=== PATIENT | female | born 1995 | race Caucasian/White ===

== ENCOUNTER 2020-06-16 13:59 | Outpatient (CLI) | payer MEDICAID, SELFPAY ==
--- NOTE | ~2020-06-16 | US_ITS ---
EXAMINATION: US OB <= 14 weeks fetus DATE: 06/16/2020 14:37 INDICATION: Spotting during first trimester . TECHNIQUE: Real-time pelvic transabdominal and transvaginal ultrasound was performed. COMPARISON: None. FINDINGS: The uterus measures 9.7 x 5.0 x 5.3 cm. There is an intrauterine gestational sac. There is a 1.1 x 0.4 x 0.5 cm hypoechoic area adjacent to the gestational sac. A yolk sac is identified. Feta l heart motion is identified measuring 115 beats per minute (bpm) by M-mode Doppler. The crown rump length measures 4 mm , which correlates with an estimated gestational age of 6 weeks and 0 day(s ) (+/-) 4 day(s). The right ovary is not visualized however no right adnexal abnormality is seen. The left ovary measur es 2.9 x 2.1 x 2.4 cm. There is normal vascular flow in the left ovary. There is no free fluid in the pelvis. IMPRESSION: 1. Live intrauterine with an estimated gestational age of 6 weeks and 0 day(s) (+/-) 4 day( s) and an estimated delivery date of 02/09/2021. 2. Small subchorionic hemorrhage. Reviewed, dictated and finalized at location A. 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 Live intrauterine with an estimated gestational age of 6 weeks and 0 day(s) (+/-) 4 day(s) and an estimated delivery date of 02/09/2021. 2. Small subchorionic hemorrhage.
== END 2020-06-16 14:00 | disposition home or self-care (01) ==
PROVIDERS: Visit Provider Obstetrics & Gynecology Gynecology
DX: O26.21 Pregnancy care for patient with recurrent pregnancy loss, first trimester (principal); O26.851 Spotting complicating pregnancy, first trimester; Z3A.00 Weeks of gestation of pregnancy not specified
CPT/HCPCS: 76801

== ENCOUNTER 2020-06-30 16:01 | Outpatient (CLI) | payer MEDICAID, SELFPAY ==
--- NOTE | ~2020-06-30 | US_ITS ---
EXAMINATION: US OB <= 14 weeks fetus EXAM DATE: 06/30/2020 16:29 INDICATION: Subchorionic hematoma. Follow-up. 1st trimester. TECHNIQUE: Pelvic obstetrical transabdominal sonogram was performed by a technologist. There are mu ltiple grayscale and Doppler images available for interpretation. Comparison is made to prior examina tion from 06/16/2020. FINDINGS: There is a live intrauterine gestation, with 1.9 cm crown-rump length corresponding to nubia mated gestational age 8 weeks 2 days, FOSTER 02/07/2021. heart rate was confirmed at 165 bpm. There is a yolk sac. No subchorionic hematoma was identified on this exam. IMPRESSION: Live intrauterine gestation, resolution of previously seen subchorionic hemorrhage. Reviewed, dictated and finalized at location A. IMPRESSION: Live intrauterine gestation, resolution of previously seen subchor ionic hemorrhage.
== END 2020-06-30 16:02 | disposition home or self-care (01) ==
PROVIDERS: Visit Provider Obstetrics & Gynecology Gynecology
DX: O36.8910 Maternal care for other specified fetal problems, first trimester, not applicable or unspecified (principal); Z3A.00 Weeks of gestation of pregnancy not specified
CPT/HCPCS: 76801

== ENCOUNTER 2020-09-15 16:18 | Outpatient (CLI) | payer OTHER, SELFPAY ==
--- NOTE | ~2020-09-15 | US_ITS ---
EXAMINATION: US OB /maternal detail DATE: 09/15/2020 17:03 INDICATION: survey TECHNIQUE: Multiple obstetric sonographic images performed. FINDINGS: Comparison to multiple prior studies sequentially, with oldest reviewed study dated . There is a single living fetus in vertex presentation. The placenta is posterior without placenta pr evia. Amniotic fluid volume is subjectively normal cardiac activity and movement is noted with a heart rate of 150 beats per minute. The following anatomy was identified as normal: 4 chamber heart 3 vessel cord cord insertion kidneys urinary bladder stomach spine diaphragm ventricles cisterna magna cerebellum The following biometric data were obtained: BPD: 47mm corresponds to gestational age 20 weeks 1 days. Head circumference: 166 mm corresponds to gestational age 19 weeks 2 days. Abdominal circumference: 138 mm corresponds to gestational age 19 weeks 2 days. Femur length: 30 mm corresponds to gestational age 19 weeks 1 days. Head circumference to abdominal circumference ratio: 1.2 (normal range for expected gestational age i s 1.08-1.26). Estimated weight: 281 grams +/- 42 grams using Hadlock method. IMPRESSION: 1: Single living intrauterine with an estimated gestational age of 19weeks 0days by initial ultrasound measurements, with an EDC of 02/09/2021 in vertex presentation. 2. Normal survey. Reviewed, dictated and finalized at location B. IMPRESSION: 1: Single living intrauterine with an estimated gestational age of 19 weeks 0days by initial ultrasound measurements, with an EDC of 02/09/2021 in ve rtex presentation. 2. Normal survey.
== END 2020-09-15 16:19 | disposition home or self-care (01) ==
LOC: ANHIMG 16:22
PROVIDERS: Visit Provider Obstetrics & Gynecology Gynecology
DX: Z36.9 Encounter for antenatal screening, unspecified (principal); Z3A.19 19 weeks gestation of pregnancy
CPT/HCPCS: 76805

== ENCOUNTER 2021-01-25 14:11 | Outpatient (CLI) | payer OTHER, SELFPAY ==
--- NOTE | ~2021-01-25 | US_ITS ---
EXAMINATION: US OB follow up DATE: 01/25/2021 15:06 INDICATION: Estimated size less than expected for estimated gestational age. TECHNIQUE: Real-time ultrasound of the pelvis was performed. The interpreting radiologist was not pre sent for the study. COMPARISON: None. FINDINGS: There is a single living fetus in vertex presentation. The placenta is posterior. heart rate i s 139 beats per minute (bpm). The amniotic fluid volume is subjectively normal. The following biometric data were obtained: BPD: 9.2 cm -> 37 weeks 1 days Head circumference: 32.6 cm -> 36 weeks 6 days Abdominal circumference: 31.2 cm -> 35 weeks 1 days Femur length: 7.1 cm -> 36 weeks 3 days These measurements are concordant. Head circumference to abdominal circumference ratio: 1.04 (normal range 0.92-1.07). Estimated weight: 2798 g (+/-) 420 g or 6 lbs. 3 oz. (+/-) 15 oz. IMPRESSION: 1. Single living fetus in vertex presentation with heart rate of 139 bpm. 2. Estimated weight is 16th percentile by Hadlock criteria when 02/09/2021 is used as the estima el date of delivery (FOSTER) based upon earliest ultrasound performed at this institution on 06/16/2020. Please correlate with clinical information or earlier ultrasounds for most accurate FOSTER. Reviewed, dictated and finalized at location A. IMPRESSION: 1. Single living fetus in vertex presentation with heart rate of 139 bpm. 2. Estimated weight is 16th percentile by Hadlock criteria when 02/09/2021 is used as the estimated date of delivery (FOSTER) based upon earliest ultrasound performed at this institution on 06/16/2020. Please correlate with clinical inf ormation or earlier ultrasounds for most accurate FOSTER.
== END 2021-01-25 14:12 | disposition home or self-care (01) ==
LOC: ANHIMG 14:23
PROVIDERS: PCP Nurse Practitioner; Visit Provider Nurse Practitioner
DX: O36.5933 Maternal care for other known or suspected poor fetal growth, third trimester, fetus 3 (principal); Z3A.36 36 weeks gestation of pregnancy
CPT/HCPCS: 76816

== ENCOUNTER 2021-02-03 04:55 | Inpatient (IN) | payer OTHER, SELFPAY ==
[2021-02-03] VITALS (82 sets, daily range): BP systolic 78–157; BP diastolic 44–93; PULSE 57–231; RESP 16; TEMP 36.8–37.2; O2SAT 95–100; BMI 30.1
--- NOTE | 2021-02-03 04:55 | LDADM ---
This patient, Grace Andersen, was admitted to Labor/Delivery/Recovery 104 on 02/03/21 at 04:55. Plans for labor, pain management and were discussed with patient. Patient/family oriented to hospital policies and general routines including ID bracelet, bed and alarms, visiting hours, pain management, procedures, bathroom and other care routines, personal items, smoking policy, room service/diet and guest tray routines, security routines, and visiting hours. Patient/Family are encouraged to report perceived risks to care and to ask questions if they do not understand what they are told or what they should do. See OBIX for further documentation.
[2021-02-03 05:44] LABS: Basophils Percent Auto 0.5 % (0.2-1.2); Eosinophils Absolute Auto 0.1 K/mm3 (0-0.3); Eosinophils Percent Auto 0.7 % (0-4.4); Hemoglobin 11.1 g/dL (12.0-15.0); Immature Granulocyte Absolute 0.04 K/mm3 (0.00-0.031); Immature Granulocyte Percent A 0.5 % (0-0.5); Lymphocytes Absolute Auto 1.65 K/mm3 (0.9-3.2); Lymphocytes Percent Auto 20.2 % (18.3-44.2); Mean Corpuscular HGB Conc 31.7 g/dl (32-36); Mean Corpuscular Hemoglobin 29.1 pg (26-34); Mean Corpuscular Volume 91.6 fl (80-100); Mean Platelet Volume 10.6 fl (7.4-10.4); Monocytes Absolute Auto 0.6 K/mm3 (0.1-0.6); Monocytes Percent Auto 6.8 % (2.6-8.5); Neutrophils Absolute Auto 5.8 K/mm3 (1.3-6.7); Neutrophils Percent Auto 71.3 % (45.5-73.1); Platelet Count Result 193 k/mm3 (150-375); Red Blood Count 3.82 M/mm3 (4.2-5.4); Red Cell Distribution Width 14.4 % (11.5-14.5); White Blood Count 8.2 K/mm3 (4.5-10.0)
[2021-02-03] MEDS: OXYTOCIN 30 UNITS/NS 500 ML 30 UNITS/500 ML BAG IV CONT (05:55)
[2021-02-03] MEDS: LACTATED RINGERS 1,000 ML 125 ML IV CONT ×2 (05:55→12:15)
--- NOTE | 2021-02-03 06:26 | WPDANESEPP ---
Anes - Eval Pre Procedure Procedure: labor epidural Date/Time: 02/03/21 06:26 Surgeon: evelio Preop Diagnosis: pain during labor Pre Op Diagnosis: IOL Patient Data Age: 25 Gender: F Height: 1.7 m Weight: 87.3 kg Last Vital Signs Pulse 82 02/03/21 05:36 BP 117/77 02/03/21 05:36 Allergies Allergy/AdvReac Type Severity Reaction Status Date / Time amoxicillin Allergy Mild Hives Verified 01/17/21 12:31 Home Medications Medication Instructions Recorded Confirmed Type prenat.vits,nadege,isr-zema-huxdt 1 tablet PO DAILY 01/17/21 02/03/21 History [ #2] valacyclovir [Valtrex] 500 mg PO DAILY 01/17/21 02/03/21 History Laboratory Tests 02/03/21 02/03/21 02/03/21 05:26 05:26 05:26 WBC 8.2 K/mm3 K/mm3 (4.5-10.0) RBC 3.82 M/mm3 L M/mm3 (4.2-5.4) Hgb 11.1 g/dL L g/dL (12.0-15.0) Hct 35.0 % L % (37.0-47.0) MCV 91.6 fl fl (80-100) MCH 29.1 pg pg (26-34) MCHC 31.7 g/dl L g/dl (32-36) RDW 14.4 % % (11.5-14.5) Plt Count 193 k/mm3 k/mm3 (150-375) MPV 10.6 fl H fl (7.4-10.4) Immature Gran % (Auto) 0.5 % % (0-0.5) Neut % (Auto) 71.3 % % (45.5-73.1) Lymph % (Auto) 20.2 % % (18.3-44.2) [place] % (Auto) 6.8 % % (2.6-8.5) Eos % (Auto) 0.7 % % (0-4.4) Baso % (Auto) 0.5 % % (0.2-1.2) Lymph # (Auto) 1.65 K/mm3 K/mm3 (0.9-3.2) [place] # (Auto) 0.6 K/mm3 K/mm3 (0.1-0.6) Eos # (Auto) 0.1 K/mm3 K/mm3 (0-0.3) Baso # (Auto) 0.0 K/mm3 K/mm3 (0.0-0.1) Abs Immat Gran (auto) 0.04 K/mm3 H K/mm3 (0.00-0.031) Absolute Neuts (auto) 5.8 K/mm3 K/mm3 (1.3-6.7) Absolute Nucleated RBC 0.0 K/mm3 K/mm3 (0.0-0.012) Nucleated RBC % 0.0 % % (0.0-0.2) RPR Pending HIV 1&2 Ab/P24 Ag 4thGn Pending Patient hx anesthesia problems: none Family hx anesthesia problems: none Results Review: All pre-operative results and documents have been reviewed as part of the pre-operative evaluation. [facility] Family History Family History Other No pertinent family history Social History Social History Smoking status: Former smoker Substance use: never Spiritual care concerns: No Exam Day of Procedure 02/03/21 06:26
[2021-02-03 06:42] LABS: HIV 1/2 Ab P24 Ag Result Negative (Negative)
[2021-02-03 06:58] LABS: Rapid Plasma Reagin Non-Reactive (NonReactive)
--- NOTE | 2021-02-03 07:53 | WPDOBADMIT ---
Obstetrics - Admit Note Admission Note: record reviewed. No pertinent additions to the history and/or any subsequent changes in the physical findings that are not consistent with the expected course of the were found. Additions to the history and/or subsequent changes in the physical findings follow. None.Here for MIL at 39 wks. /-3 AROM with clear fluid. FHTs reactive. Continue Pitocin
--- NOTE | 2021-02-03 14:45 | PM.OBPRVD ---
OB - Delivery Note Procedure Delivery date: 02/03/21 Procedure: events: Labor Induction Intrapartal events: None Induction method: AROM and per pitocin protocol Delivery monitor: external FHT and external uterine Route of delivery: Laceration Description: None Specimen: No Quantitative Blood Loss (ml): 50 Anesthesia type: Epidural Disposition: floor Baby Date of : 02/03/21 Weeks of gestation at delivery: 39 gender: Female presentation: vertex position: Right Occiput Anterior Placenta delivery description: Spontaneous cord vessel description: 3 Vessels score one minute: 9 score five minutes: 9
--- NOTE | 2021-02-03 14:46 | PM.OBDSVD ---
DS: Admitting Diagnosis Discharge Date 02/04/21 Admitting Diagnosis MIL @39 wks DS: Discharge Diagnosis Discharge Diagnosis (1) (normal spontaneous vaginal delivery): Code(s): O80 - Encounter for full-term uncomplicated delivery Status: Acute OB - DS: Summary OB Procedures : Ultrasound OB Procedures Intrapartum: Spontaneous Vag Delivery OB Procedures: : None Peripartum Data Infant Delivery Method: Natural Vaginal Laceration Description: None complications: none Status at Discharge Functional status at discharge: independent ambulation Overall status at discharge: patient is progressing back to baseline Time Spent with Patient Time attestation: Total time spent providing and/or coordinating discharge services: DS: Data Data Completed and Pending Labs on day of discharge: Labs from last 24 hours 02/03/21 02/03/21 02/03/21 05:26 05:26 05:26 WBC RBC Hgb Hct MCV MCH MCHC RDW Plt Count MPV Immature Gran % (Auto) Neut % (Auto) Lymph % (Auto) [place] % (Auto) Eos % (Auto) Baso % (Auto) Lymph # (Auto) [place] # (Auto) Eos # (Auto) Baso # (Auto) Abs Immat Gran (auto) Absolute Neuts (auto) Absolute Nucleated RBC Nucleated RBC % RPR Non-reactive HIV 1&2 Ab/P24 Ag 4thGn Negative Blood Type B Positive Antibody Screen Negative 02/03/21 05:26 WBC 8.2 RBC 3.82 L Hgb 11.1 L Hct 35.0 L MCV 91.6 MCH 29.1 MCHC 31.7 L RDW 14.4 Plt Count 193 MPV 10.6 H Immature Gran % (Auto) 0.5 Neut % (Auto) 71.3 Lymph % (Auto) 20.2 [place] % (Auto) 6.8 Eos % (Auto) 0.7 Baso % (Auto) 0.5 Lymph # (Auto) 1.65 [place] # (Auto) 0.6 Eos # (Auto) 0.1 Baso # (Auto) 0.0 Abs Immat Gran (auto) 0.04 H Absolute Neuts (auto) 5.8 Absolute Nucleated RBC 0.0 Nucleated RBC % 0.0 RPR HIV 1&2 Ab/P24 Ag 4thGn Blood Type Antibody Screen Discharge Plan Discharge Attending physician on discharge: Mel Abraham Discharging Clinician: Reddy,Rock L. Anticipated Discharge Date/Time: 02/04/21 14:47 Patient Disposition: Home, Self-Care Activity: may shower and pelvic rest Diet: regular Discharge Instructions: Education: Mom and Baby Guide Given to: Mother Follow-Up: Call your delivering provider's office for an appointment to be seen in: 6 Weeks Mom and baby should come to the [facility] for the follow-up appointment. Appointment Date/Time: February 07, 2021 at 11:00 am What to expect at your follow-up visit: Physical Assessment Call [phone] if you are unable to keep your appointment time. BREAST CARE: * Wear a snug supportive bra. * For engorgement discomfort: Breast Feeding: * Apply warm moist washcloths * Express milk as needed to relieve engorgement * Wear loose clothing * For sore nipples: * Identify correct latch-on * Apply warm moist washcloths before and after nursing * Air dry nipples after nursing * May apply Lansinoh cream to nipples PERINEAL CARE: * Until bleeding stops, use your joe bottle after urinating * Change your pad frequently throughout the day * You may take sitz baths several times a day (fill your bathtub with warm water and soak for 20 minutes.) Do NOT bathe in the water * No tub baths until seen by your physician - You may shower ACTIVITY: * Rest as much as possible. * Do not exercise or lift anything heavier than your baby (such as laundry or other children.) * Avoid stairs or driving as much as possible. * Do not put anything into the vagina. No douching, tampons, or sexual activity until seen by physician. NOTIFY PHYSICIAN IF YOU HAVE ANY QUESTIONS OR IF ANY OF THE FOLLOWING SYMPTOMS OCCUR: * If your perineum becomes red, swollen, or more painful than what you have experienced in the hospital. * If your vaginal bleeding becomes foul sme
[2021-02-03] MEDS: OXYTOCIN 30 UNITS/NS 500 ML 30 UNITS/500 ML BAG 125 UNITS IV CONT (15:10)
--- NOTE | 2021-02-03 17:22 | OBPPTRN ---
Patient transferred to post room # 290 via wheelchair accompanied by fob and . Support person present. Oriented to unit, room, information board, rooming in, admission packet and security measures. Patient verbalizes understanding. PT sole recipient of such instructions and no barriers to learning identified. PT received instructions and care per one to one discussion, mom baby care guide and demonstration this shift.
[2021-02-04 00:10] VITALS: BP 118/66; PULSE 68; RESP 16; TEMP 36.9; O2SAT 100
[2021-02-04] MEDS: IBUPROFEN 600 MG TABLET PO (01:15)
[2021-02-04 03:30] VITALS: BP 113/52; PULSE 74; RESP 16; TEMP 36.9; O2SAT 100
[2021-02-04 06:25] LABS: Hematocrit 32.4 % (37.0-47.0); Hemoglobin 10.2 g/dL (12.0-15.0)
[2021-02-04 08:20] VITALS: BP 113/68; PULSE 78; RESP 16; TEMP 37.2; O2SAT 100
--- NOTE | 2021-02-04 08:25 | PC.NURSE ---
Mother called out for assist with feeding, reporting is sleepy and she has sore nipples. Mother reports this to be 2nd child to breastfeed. Infant is able to freely thrust tongue past gum ridge and flange both lips. Skin is intact on both nipples, redness noted, no bruising noted. Reviewed feeding cues, frequencies, duration of feedings, feeding elimination flow sheet, and signs of adequate intake. Demonstrated stimulation techniques to wake for feeding. Assisted with to breast. Reviewed positioning/alignment in cross cradle, holding breast in ?U? hold and guided asymmetrical latch on. Reviewed rational for each. Infant sleepy and made eager attempts to latch with no suckling. Small amount of glucose water to gloved finger and nipple. Infant was able to latch correctly within a few attempts. nursed eagerly with steady draws and occasional swallowing noted, some pausing noted. Reviewed signs of a correct latch, effective nursing and suck swallow ratio. Suggested mother stimulate while feeding to increase stimulate, increase intake and to assist with maintaining deep latch. Infant would slip to shallow latch causing tenderness. Demonstrated how to adjust latch more deeply while feeding if needed. Mother reports she can feel the difference in latch with no tenderness. Nipple care reviewed of lanolin after feedings, warm compresses as needed, gel pads provided and reviewed care and cleaning. Instructed mother to call out for RN assistance if she is unable to latch for feeding or she has discomfort with nursing. Instructed feeding should be initiated three hours from start of last feeding or if feeding cues are noted before. Mother voiced understanding of information shared. Mother plans on discharge later this day. Mother is feeding as required and waking infant to feed if needed. is currently meeting outcomes for weight, output, jaundice and feeding frequencies. Mother states she feels confident to continue effective at home. Stressed the importance of keeping awake while feeding and keeping accurate record of output. Reviewed transition to breast milk, signs of adequate intake, and engorgement/relief. Instructed to call ICP if intake/output less than required. Reviewed regular medications mother is taking. Information provided per Anai. Reviewed community resources on the [employer] website and in the Mom/Baby guide. Information on outpatient services provided. Mother has no further questions at this time.
[2021-02-04] MEDS: MULTIVIT/MIN/PREN/FOL AC/IRON TABLET 1 TAB PO (09:38)
--- NOTE | 2021-02-04 11:55 | PM.OBPNVD ---
OB - PN: Subj Subjective Date/time seen: 02/04/21 11:55 doing well no complaints OB - PN: Obj Data Labs CBC & Chem 7: 02/04/21 03:35 Labs: Laboratory Results - last 24 hr 02/04/21 03:35 Hgb 10.2 L Hct 32.4 L OB - PN A/P Assessment and Plan (1) (normal spontaneous vaginal delivery): Code(s): O80 - Encounter for full-term uncomplicated delivery Status: Acute Assessment and Plan: d/c home Time Spent With Patient Time: Total time spent is greater than 50% in coordination of care (as documented) at patient's floor/unit and/or counseling patient: Exam Narrative: ff below umbilicus
[2021-02-04 13:06] VITALS: BP 106/56; PULSE 79; RESP 18; TEMP 37.2; O2SAT 99
--- NOTE | 2021-02-04 13:08 | WPDANLDPN2 ---
Anes-Prog Note L&D Date/Time: 02/04/21 13:08 Comfortable throughout: labor and delivery Neuraxial method: epidural Epidural/Spinal procedure site: clean & non-tender Neuro status: Neuro function grossly intact. Cardiovascular status: normal Respiratory status: normal Airway patency: baseline Mental status: baseline Post-Op hydration status: normal Vital Signs: Last Vital Signs Temp 37.2 C 02/04/21 13:06 Pulse 79 02/04/21 13:06 Resp 18 02/04/21 13:06 BP 106/56 L 02/04/21 13:06 Pulse Ox 99 02/04/21 13:06 Pain score (VAS): 3 I/O: Intake & Output 02/03/21 02/04/21 02/04/21 23:59 07:59 15:59 Output Total 50 Balance -50 Post-procedural complaints: none Patient feedback: Patient satisfied with anesthetic care.
[2021-02-07 11:17] VITALS: BP 121/65; PULSE 78; RESP 16; TEMP 37.2; O2SAT 100
== END 2021-02-04 16:15 | disposition home or self-care (01) | DRG 560 ==
LOC: ANHLDR 02-07 11:30 → ANHOB2 02-07 11:30
PROVIDERS: Admitting Provider Obstetrics & Gynecology Gynecology; PCP Nurse Practitioner; Visit Provider Obstetrics & Gynecology
DX: O80 Encounter for full-term uncomplicated delivery (principal); Z3A.39 39 weeks gestation of pregnancy; Z37.0 Single live birth
CPT/HCPCS: 36415; 85014; 85018; 85025; 86592; 86703; 86850; 86900; 86901; A9270; G0432; J2590; J2795; J7120

== ENCOUNTER 2022-02-19 09:40 | Emergency (ER) | payer OTHER, SELFPAY ==
[2022-02-19 09:52] VITALS: BP 113/62; PULSE 78; RESP 16; TEMP 36.3; O2SAT 100
--- NOTE | 2022-02-19 10:49 | ED.URI ---
HPI - URI/Sore Throat General Chief Complaint: Upper Respiratory Infection Stated Complaint: Headache,Ears,Sore Throat Time Seen by Provider: 02/19/22 10:49 Source: patient Mode of arrival: ambulatory Limitations: no limitations History of Present Illness HPI Narrative: 26-year-old female presents with complaint of runny nose, postnasal drainage, sore throat, nasal congestion, cough for 5 days. Reports that symptoms started after 80 degree weather, Sleepy with windows open at night. She is not taking any allergy medications or any other wxwp-wya-zowqkkc medications to treat her symptoms. she denies chest pain and shortness of breath. 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 Afebrile. All systems reviewed and negative except as noted above. Related Data Allergies Allergy/AdvReac Type Severity Reaction Status Date / Time amoxicillin Allergy Mild Hives Verified 02/19/22 10:07 Review of Systems Review of Systems: CONSTITUTIONAL: Denies fever, chills, or sweats. EYES: Denies visual changes, redness, or discharge. ENT: Reports rhinorrhea, congestion, sore throat, or otalgia. CARDIOVASCULAR: Denies chest pain, palpitations, or edema. RESPIRATORY: reports cough. Denies dyspnea. GASTROINTESTINAL: Denies abdominal pain, nausea, vomiting, or diarrhea. GENITOURINARY: Denies dysuria or hematuria. SKIN: Denies rash or itching. MUSCULOSKELETAL: Denies back pain, joint pain, or myalgia. NEUROLOGIC: Denies headache, numbness, or weakness. PSYCHIATRIC: Denies anxiety or depression. All other systems reviewed are negative, except as documented in HPI. [facility] Family History Family History Other No pertinent family history Social History Social History Smoking status: Former smoker Substance use: never Spiritual care concerns: No Comments At time of signature, agree with nursing past medical, surgical, social and family history. There is no relevant family history pertinent to the presenting complaint. Exam Narrative: GENERAL: This is a well-nourished, well-developed patient, in no apparent distress. HEAD: normocephalic, atraumatic. EYES: PERRL. Sclera clear/white. Vision is grossly intact. EARS: External ears normal, auditory canals clear and without drainage, mild clear fluid to bilateral TMs without erythema or perforation. NOSE: External nose normal with Mild nasal congestion. No sinus tenderness on exam. THROAT: Mucous membranes moist, No erythema to posterior pharynx but clear postnasal drainage noted. NECK: Neck supple, non-tender without lymphadenopathy, masses or thyromegaly. CARDIOVASCULAR: Regular rate and rhythm without murmurs, gallops, or rubs. RESPIRATORY: Clear to auscultation. Breath sounds equal bilaterally. No wheezes, rales, or rhonchi. SKIN: warm, Dry, intact with no suspicious lesions or rash, good texture and turgor. NEURO: awake, alert, and oriented to person, place and time. There were no obvious focal neurologic abnormalities. EXTREMITIES: No joint tenderness, effusion, or edema noted. Course Course Level of Care: Express Care Visit Vital Signs Vital signs: Vital Signs Temperature 36.3 C L 02/19/22 09:52 Pulse Rate 78 02/19/22 09:52 Respiratory Rate 16 02/19/22 09:52 Blood Pressure 113/62 02/19/22 09:52 Pulse Oximetry 100 02/19/22 09:52 Oxygen Delivery Room Air 02/19/22 09:52 Temperature 36.3 C L 02/19/22 09:52 Pulse Rate 78 02/19/22 09:52 Respiratory Rate 16 02/19/22 09:52 Blood Pressure 113/62 02/19/22 09:52 Pulse Oximetry 100 02/19/22 09:52 Oxygen Delivery Room Air 02/19/22 09:52 reviewed MDM - URI/Sore Throat MDM Narrative Medical decision making narrative: negative influenza and strep test. Will treat for rhinosinusitis Differential Diagnosis Differential diagnosis: Likely upper respiratory infection, otitis media, sinusitis, viral infection and influenza Lab Data Labs: Inf
== END 2022-02-19 11:06 | disposition home or self-care (01) ==
PROVIDERS: Emergency Provider Nurse Practitioner Family; PCP Nurse Practitioner
DX: J01.90 Acute sinusitis, unspecified (principal); Z87.891 Personal history of nicotine dependence
CPT/HCPCS: 87081; 87804; 87880; 99213; G0463

== ENCOUNTER 2023-03-28 17:46 | Emergency (ER) | payer OTHER, SELFPAY ==
[2023-03-28 17:58] VITALS: BP 104/57; PULSE 83; RESP 16; TEMP 37.3; O2SAT 99
--- NOTE | 2023-03-28 18:07 | ED.URI ---
HPI - URI/Sore Throat General Chief Complaint: Upper Respiratory Infection Stated Complaint: sore throat Time Seen by Provider: 03/28/23 17:51 Source: patient Mode of arrival: ambulatory Limitations: no limitations History of Present Illness HPI Narrative: Grace is a 27-year-old female patient presenting to the clinic today with complaints of a sore throat, headache, nasal congestion x3 days. She reports no known fever or chills. Reports that her son tested positive for influenza. MD elicited complaint: sore throat and nasal congestion Related Data Allergies Allergy/AdvReac Type Severity Reaction Status Date / Time amoxicillin Allergy Mild Hives Verified 03/28/23 17:55 Review of Systems Review of Systems: Pertinent positives per HPI. Patient denies any fever, chills, rash, headache, visual changes, dizziness, cough, shortness of breath, chest pain, palpitations, nausea, vomiting, diarrhea, constipation, abdominal pain, or any urinary issues. [facility] Family History Family History Other No pertinent family history Social History Social History Smoking status: Former smoker Substance use: never Spiritual care concerns: No Comments At the time of my signature, I reviewed and agree with the nursing past medical, surgical, social, and family history. There is no relevant family history pertinent to the patient complaint. Exam Narrative: General: Well-developed, well nourished, in no apparent distress Head: Normocephalic, atraumatic Eyes: Pupils equally round and reactive to light bilaterally, EOM intact, sclera and conjunctive clear, no discharge, lids normal Ears: TMs intact and clear, ear canals clear, no drainage, grossly hearing normal. Nose: Nares patent, clear nasal discharge, no inflammation, no sinus tenderness. Mouth: Oral pharynx red with bilateral tonsillar enlargement without lesions or masses, good dentition, MMM. Neck: Supple, trachea midline, enlargement of anterior cervical nodes, no thyroid masses or goiter palpable. Cardio: Regular rate and rhythm, s1 and s2 normal, no murmur appreciated. Resp: Clear to auscultation bilaterally, no rhonchi, rales, wheezing or rubs Course Course Emergency Course: Portions of this record may have been created with voice recognition software. Level of Care: Express Care Visit Vital Signs Vital signs: Vital Signs Temperature 37.3 C 03/28/23 17:58 Pulse Rate 83 03/28/23 17:58 Respiratory Rate 16 03/28/23 17:58 Blood Pressure 104/57 L 03/28/23 17:58 Pulse Oximetry 99 03/28/23 17:58 Oxygen Delivery Room Air 03/28/23 17:58 Temperature 37.3 C 03/28/23 17:58 Pulse Rate 83 03/28/23 17:58 Respiratory Rate 16 03/28/23 17:58 Blood Pressure 104/57 L 03/28/23 17:58 Pulse Oximetry 99 03/28/23 17:58 Oxygen Delivery Room Air 03/28/23 17:58 Vital signs reviewed MDM - URI/Sore Throat MDM Narrative Medical decision making narrative: At the time of visit patient is resting comfortably on the exam table. Patient appears to be nontoxic. Influenza testing was negative. Strep test was positive. Prescription for azithromycin was sent to the pharmacy. Supportive measures were discussed with the patient and they voiced understanding discharge instructions and agrees to treatment plan. Return precautions reviewed Differential Diagnosis Differential diagnosis: Likely upper respiratory infection, otitis media, sinusitis, viral infection, bronchitis, influenza, pharyngitis and other (COVID) Discharge Plan Discharge Clinical Impression: Acute streptococcal pharyngitis Patient Disposition: Home, Self-Care Condition: Stable Instructions: Antibiotic Form, Strep Throat (ED) Additional Instructions: Take prescription medications only as prescribed-azithromycin Influenza testing was negative.
== END 2023-03-28 18:34 | disposition home or self-care (01) ==
PROVIDERS: Emergency Provider Nurse Practitioner Family
DX: J02.0 Streptococcal pharyngitis (principal); Z87.891 Personal history of nicotine dependence
CPT/HCPCS: 87804; 87880; 99213; G0463